=== PATIENT | female | born 1925 | race Caucasian/White ===

== ENCOUNTER 2017-09-14 19:20 | Inpatient (IN) | payer MEDICARE, OTHER ==
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
--- NOTE | 2017-09-14 20:41 | HP ---
Chief Complaint - Chief Complaint Date of Service: 09/14/17 Time of Service: 20:39 Chief Complaint: " Fall, LT Hip Pain". Source of HPI- Pt; reliable, ERP report. History of Present Illness: Mrs. Gonzalez is a 89-yr-old WF pt of Dr. Alonso Del Toro, [place], with a PMH of : Anemia, A-fib, Depression, DM II, GERD, HTN, PVD, Pulmonary Embolism & Warm reactive antibody. Pt is a shelter care resident at the [facility] in [place] who fell approximatley 2 pm while ambulating to the bathroom. She denies feeling dizzy with the fall and there was no loss of consciousness. She landed on the LT hip during the fall. However, she denies her head hitting the surface or any objects. She was taken to the [facility], but was transferred to [facility] due to the need for surgery by Orthopedics & Dr. Quintero was contacted by the [facility]. Laboratory studies at the [facility] showed: WBC--> 4.5, H & H---> 7.6/23.4, Platelets --> 455, PT/INR--> 16.8/1.5 & BMP was in the NR. The LT Hip X-ray showed Acute Intertrochanteric fracture.The CXR showed no acute findings. UA was negative of infection. The EKG --> A-fib with HR in the 80s. Pt will need to be admitted for LT hip Fx with tentative plan for surgery on 06/23. - Patient's Past Medical History Patient History - Medical: Depression, GERD Patient History - Cardiac/Respiratory: Atrial Fibrillation, Hypertension, Pulmonary Embolism Patient History - Cancer: No Hx of Cancer Patient History - Surgical Procedures: Cholecystectomy - 01/06/2014, Other - Revasculization of the iliac artery, Patch GRF- Mesenteric Celiac, Thromboembolectomy- RT common femoral, - Family History Father Family History - Medical: , No pertinent hx Mother Family History - Medical: , No pertinent hx - Social History Living Situations: retirement Psych History: No pertinent hx Smoking Status: Former smoker Have you smoked in the past 12 months: No Do you dip or chew tobacco: No Alcohol Use: none Drug Use: none - Immunizations Immunizations Up to Date: No - unknown Hx Pneumococcal Vaccination: Yes History of Influenza Vaccine: Yes Review Of Systems (GEN) - Review of Systems Generalized/Overall Review: Present: Weakness. Absent: Chills, Fever, Malaise EENTM: Present: Nose Congestion. Absent: Eye Pain, Blurred Vision Respiratory: Absent: Cough, Shortness of Breath, Orthopnea Cardiac: Absent: Chest Pain, Edema, Palpitations Abdominal: Absent: Nausea, Vomiting, Hematemesis, Constipation, Diarrhea Genitourinary: Absent: Burning, Itching, Urgency, Frequency Musculoskeletal: Absent: Joint Pain, Back Pain, Joint Swelling Neurological: Absent: Headache, Anxiety, Depressed, Emotional Problems Skin: Absent: Dryness, Lesions, Lumps Endocrine: Absent: Increased Hunger, Flushing, Increased Thirst Misc: All systems neg except as marked Immunizations: IMMUNIZATION HX Immunizations Up to Date No: unknown History of Influenza Vaccine Yes Hx Pneumococcal Vaccination Yes Allergies/Adverse Reactions: Allergies Allergy/AdvReac Type Severity Reaction Status Date / Time simvastatin AdvReac Unknown Verified 09/14/17 19:25 Home Medications: HOME MEDICATIONS Acetaminophen [Tylenol] 650 mg PO TID 09/14/17 [Last Taken Unknown] Citalopram Hydrobromide [Citalopram HBr] 40 mg PO DAILY 09/14/17 [Last Taken Unknown] Dabigatran Etexilate Mesylate [Pradaxa] 150 mg PO BID 09/14/17 [Last Taken Unknown] Famotidine 20 mg PO DAILY 09/14/17 [Last Taken Unknown] Metoprolol Tartrate [Lopressor] 12.5 mg PO BID 09/14/17 [Last Taken Unknown] buPROPion HCL [Wellbutrin XL] 150 mg PO DAILY 09/14/17 [Last Taken Unknown] Exam - Exam Vital Signs: Vital Signs - Last Taken Temp 36.3 C L 09/14/17 20:11 Pulse 83 09/14/17 20:11 Resp 18 09/14/17 20:11 BP 134/75 09/14/17 20:11 Pulse Ox 95 09/14/17 20:11 Constitutional: Present: Alert, Oriented x3, Cooperative, Elderly ENT Exam: Present: normal ENT inspection, dry mucous membranes Eye Exam: bilateral eye: normal inspection, PERRL Neck: Present: non-tender, full range of motion, supple Back Exam: Present: normal inspection, no CVA tenderness Breasts: Present: Exam deferred Respiratory: Present: lungs clear Cardiovascular/Chest: Present: normal peripheral pulses, regular rate, rhythm, no chest tenderness, no murmur Abdomen: Present: Normal bowel sounds, soft, nontender /Rectal: Present: Exam deferred Extremity: Present: no pedal edema, other - Limited ROM on the Left Lower Ext.. Absent: normal range of motion Skin Exam: Present: warm/dry, no cyanosis Lymphatic: Present: no adenopathy Neurologic: Present: alert, normal mood/affect, oriented x 3 Appearance: Present: appropriate appearance, appropriate insight Thoughts: Present: normal thought pattern, no apparent hallucination Assessment/Plan - Assessment/Plan (1) Intertrochanteric fracture of left hip Assessment: Pt is a 89-yr-old WF pt who sustained LT hip fracture following a fall on . Orthopedic consulted on pt by the [facility]. The pt laboratory studies was mostly unremarkable except for H/H of 7.6/23. Due to tentative surgery on 09/15, anticipated blood loss with surgery & high risk for hemorrhage;- Age & hgb < 12g /dL, it's reasonable to transfuse with PRBC to a goal of at least 9.0. However , antibodies were detected in her Type screen/crossmatch and may take over 4 hours for the compatible blood products to be obtained. Will transfuse 2 units and put 2 units on hold. The CXR did not have any acute findings. Troponin & EKG did not have any concerns for ACS/ND. UA was negative for infection. WBC is in NR. According to RCRI, She has a score of class II which carries a 0.9 % risk of major cardiac event pre/post operatively. She is clear to proceed with surgery as the benefits of surgery outweighs the risk of not performing any. Will hold anticoagulation for now. Has an INR of 1.5. Will provide supportive mgt with: immobilization, Varghese cath. Pain control, IVF hydration, Keep NPO, monitor labs in am. Problem: Acute Qualifiers: Encounter type: initial encounter Fracture type: closed Fracture alignment: nondisplaced Qualified Code(s): S72.145A - Nondisplaced intertrochanteric fracture of left femur, initial encounter for closed fracture (2) Atrial fibrillation Assessment: Will hold Pradaxa for now due to tentative surgery. Place on telemetry monitoring. Continue Metoprolol. Problem: Chronic Qualifiers: Atrial fibrillation type: chronic Qualified Code(s): I48.2 - Chronic atrial fibrillation (3) HTN (hypertension) Assessment: Stable- Keep pain under control. Problem: Chronic (4) GERD (gastroesophageal reflux disease) Assessment: Stable - Pepsid. Problem: Chronic (5) Depression Assessment: Stable- On Celexa and Wellbutrin. Problem: Chronic (6) Pulmonary embolism Problem: Chronic
[2017-09-14] MEDS ORDERED: HYDROmorphone HCL 2 MG/ML VIAL ONE ×2 (22:04→23:14)
[2017-09-14] MEDS: METOPROLOL TARTRATE 25 MG TABLET PO SCH (22:07)
[2017-09-14] MEDS: HYDROmorphone HCL 1 MG/ML DISP.SYRIN IV PRN ×2 (22:10→23:16)
[2017-09-14] MEDS: NORMAL SALINE 1,000 ML IV PRN (22:13)
[2017-09-15 03:06] LABS: Anion Gap 8.4 mmol/L (6.8-13.8); BUN/Creatinine Ratio 22.4 (9.0-21.6); Estimated Creat Clear 37.8; Potassium 4.4 mmol/L (3.4-4.6)
[2017-09-15 03:07] LABS: INR 1.1 INR (0.90-1.10)
[2017-09-15 03:14] LABS: Mean Cell Volume 86.1 fl (78-100); Mean Corpuscular Hemoglobin 26.4 pg (27-31); Mean Corpuscular Hgb Conc 30.6 g/dl (32-36); Mean Platelet Volume 8.8 fl (6.0-9.5); Platelet Count 370 K/mm3 (150-450); Red Blood Count 2.73 M/mm3 (4.2-5.4); Red Cell Distribution Width 16.8 % (11.5-14.0); White Blood Count 5.6 K/mm3 (4.0-10.5)
[2017-09-15 03:16] LABS: Hemoglobin 7.2 gm/dL (12.5-16.0)
[2017-09-15 03:17] LABS: Hematocrit 23.5 % (37.0-47.0)
[2017-09-15 03:18] LABS: Total Cells Counted 100
[2017-09-15 03:45] LABS: Band 1 % (0-2.0); Lymphocyte 20 % (20-51); Monocyte 8 % (0-9); Neutrophil 71 % (42-75)
[2017-09-15 03:46] LABS: Hypochromia 3+; Ovalocytes 1+; Platelet Estimate Increased (NORMAL); Rouleaux 1+
[2017-09-15] MEDS ORDERED: HYDROmorphone HCL 2 MG/ML VIAL IV PRN (06:21)
[2017-09-15] MEDS: MORPHINE SULFATE 2 MG/ML DISP.SYRIN IV PRN ×4 (08:45→20:38)
[2017-09-15] MEDS: CITALOPRAM HYDROBROMIDE 20 MG TABLET PO SCH (08:52)
[2017-09-15] MEDS: buPROPion HCL 150 MG TAB.SR.24H PO SCH (08:52)
[2017-09-15] MEDS: METOPROLOL TARTRATE 25 MG TABLET PO SCH ×2 (08:52→20:33)
[2017-09-15] MEDS: FAMOTIDINE 20 MG TABLET PO SCH (08:52)
[2017-09-15] MEDS: ACETAMINOPHEN 325 MG TABLET PO SCH ×3 (08:53→17:17)
--- NOTE | 2017-09-15 09:58 | PN ---
Subjective - Date and Time Seen Date: 09/15/17 Time: 09:00 Subjective Narrative: Lisa reports having left hip pain with movement. Otherwise feels well. No other concerns. She denies any recent problems prior to her fall. Specifically denies chest pain, shortness of breath, bowel, or bladder problems. Objective - Vitals Vitals: Last Vital Signs Temp 37 C 09/15/17 09:56 Pulse 90 09/15/17 09:56 Resp 16 09/15/17 09:56 BP 114/69 09/15/17 09:56 Pulse Ox 93 09/15/17 09:56 - Exam Constitutional: Present: Alert, Oriented x3, Cooperative ENT Exam: Present: hearing grossly normal Cardiovascular/Chest: Present: irregularly irregular Abdomen: Present: Normal bowel sounds, soft, nontender, nondistended Skin Exam: Present: warm/dry, no cyanosis, pallor Assessment/Plan - Problems/Diagnosis (1) Intertrochanteric fracture of left hip Problem: Acute Qualifiers: Encounter type: initial encounter Fracture type: closed Fracture alignment: displaced Qualified Code(s): S72.142A - Displaced intertrochanteric fracture of left femur, initial encounter for closed fracture Narrative: Orthopedics consult for repair of left hip fracture. Patient is otherwise doing well and is medically cleared for surgery. She does have acute blood loss anemia suspected to be secondary to hip fracture with hemoglobin significantly low. As she will be undergoing surgery and is expected to lose blood during surgery she meets criteria for blood transfusion. Will transfuse 2 units. Will recheck Hemoglobin following completion of transfusions. (2) Acute blood loss anemia Problem: Acute (3) Atrial fibrillation Problem: Chronic Qualifiers: Atrial fibrillation type: chronic Qualified Code(s): I48.2 - Chronic atrial fibrillation
--- NOTE | 2017-09-15 10:23 | CONS ---
- Reason for consultation (1) Intertrochanteric fracture of left hip Date of Service: 09/15/17 HPI - General Date of Service: 09/15/17 Narrative: Mrs. Gonzalez is a 89-year-old female who lives at a nursing facility who was walking when she fell resulting in a left hip injury. She was seen in an outside emergency department and found to have a left intertrochanteric femur fracture. They did not have orthopedic coverage there so she was transferred to our emergency department for evaluation and subsequently admitted for orthopedic care. She states she normally walks with a walker. She denies any prior hip pain or injuries. She does report when she was a child she had a infected hip but has had no problems with it since. She walks independently with a walker but is not a community ambulator. Source: patient Exam Limitations: no limitations - History of Present Illness Timing/Duration: 24 hours Severity: moderate Modifying Factors - (Worsens): Reports: movement Modifying Factors - (Improves): Reports: immobilization, medication Associated Symptoms: denies symptoms Allergies/Adverse Reactions: Allergies simvastatin Adverse Reaction (Unknown, Verified 09/14/17 19:25) Home Medications: Home Medications Medication Instructions Recorded Last Taken Acetaminophen [Tylenol] 650 mg PO TID 09/14/17 Unknown Citalopram Hydrobromide 40 mg PO DAILY 09/14/17 Unknown [Citalopram HBr] Dabigatran Etexilate Mesylate 150 mg PO BID 09/14/17 Unknown [Pradaxa] Famotidine 20 mg PO DAILY 09/14/17 Unknown Metoprolol Tartrate [Lopressor] 12.5 mg PO BID 09/14/17 Unknown buPROPion HCL [Wellbutrin XL] 150 mg PO DAILY 09/14/17 Unknown - Patient's Past Medical History Patient History - Medical: Depression, GERD Patient History - Cardiac/Respiratory: Atrial Fibrillation, Hypertension, Pulmonary Embolism Patient History - Cancer: No Hx of Cancer Patient History - Surgical Procedures: Cholecystectomy - 01/06/2014, Other - Revasculization of the iliac artery, Patch GRF- Mesenteric Celiac, Thromboembolectomy- RT common femoral, - Family History Father Family History - Medical: , No pertinent hx Mother Family History - Medical: , No pertinent hx - Social History Living Situations: long term Psych History: No pertinent hx Smoking Status: Former smoker Have you smoked in the past 12 months: No Do you dip or chew tobacco: No Alcohol Use: none Drug Use: none - Immunizations Immunizations Up to Date: No - unknown Hx Pneumococcal Vaccination: Yes History of Influenza Vaccine: Yes Procedures CATARAC PHACOEMULS/ASPIR (03/13/03) INSERT LENS AT CATAR EXT (03/13/03) Medications - Medications Current Medications: Current Medications Acetaminophen (Tylenol) 650 mg PO TID [facility] Stop: 10/15/17 09:01 Last Admin: 09/15/17 08:53 Dose: Not Given Bupropion HCl (Wellbutrin Xl) 150 mg PO DAILY [facility] Stop: 10/15/17 09:01 Last Admin: 09/15/17 08:52 Dose: Not Given Citalopram Hydrobromide (Celexa) 40 mg PO DAILY [facility] Stop: 10/15/17 09:01 Last Admin: 09/15/17 08:52 Dose: Not Given Famotidine (Pepcid) 20 mg PO DAILY [facility] Stop: 10/15/17 09:01 Last Admin: 09/15/17 08:52 Dose: Not Given Sodium Chloride (Sodium Chloride 0.9%) 1,000 mls @ 125 mls/hr IV .Q8H PRN PRN Reason: HYDRATION Stop: 10/14/17 21:50 Last Admin: 09/14/17 22:13 Dose: 125 mls/hr Metoprolol Tartrate (Lopressor) 12.5 mg PO BID [facility] Stop: 10/14/17 21:01 Last Admin: 09/15/17 08:52 Dose: 12.5 mg Morphine Sulfate (Morphine Sulfate) 2 mg IV Q2H PRN PRN Reason: Severe Pain (pain scale 7-10) Stop: 10/15/17 06:42 Last Admin: 09/15/17 08:45 Dose: 2 mg Review of Systems - Review of Systems Narrative: Negative except for above Physical Examination - Exam Narrative: Left lower extremity: Palpable dorsalis pedis pulse, sensation is intact light touch throughout the left leg. She is able to flex and extend her toes and ankle with no pain. She is pain with any leg motion. Her left hip has no ecchymosis, lacerations, or abrasions. There is minimal deformity to her leg. Vital Signs: Vital Signs - Last Taken Temp 37 C 09/15/17 09:56 Pulse 90 09/15/17 09:56 Resp 16 09/15/17 09:56 BP 114/69 09/15/17 09:56 Pulse Ox 93 09/15/17 09:56 O2 Oxygen Delivery Method Nasal Cannula Constitutional: Present: Alert, Oriented x3 - Results and Findings: Narrative: Left hip films: Minimally displaced simple intertrochanteric femur fracture without signs of prior trauma or deformity. - Assessments/Findings (1) Intertrochanteric fracture of left hip Diagnosis(s): The plan is for closed reduction cephalo-medullary fixation left hip. She will need preoperative Ancef and will be placed back onto her part accepted for DVT prophylaxis. The plan is to proceed with surgery today Problem: Acute Qualifiers: Encounter type: initial encounter Fracture type: closed Fracture alignment: displaced Qualified Code(s): S72.142A - Displaced intertrochanteric fracture of left femur, initial encounter for closed fracture
[2017-09-15] MEDS ORDERED: ceFAZolin SODIUM 1 GM VIAL IV PRN (10:24)
[2017-09-15] MEDS ORDERED: NORMAL SALINE 1,000 ML IV ONE (13:15)
[2017-09-15] MEDS ORDERED: ceFAZolin SODIUM 1 GM VIAL IV ONE (13:15)
[2017-09-15] MEDS ORDERED: FUROSEMIDE 10 MG/ML VIAL IV ONE (13:44)
--- NOTE | 2017-09-15 14:17 | POSTOP NO ---
Date of Surgery: 09/15/17 Patient Tolerated the Procedure: Well Post Operative Diagnosis/Procedures: Technical Sales Engineer: Aaron Long PA-C Post-operative Diagnosis: Left closed intertrochanteric femur fracture Finding: Above Procedure: Closed reduction cephalo-medullary fixation left intertrochanteric femur fracture with intraoperative interpretation of x-rays Estimated Blood Loss: 50 mL Specimens: None
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
[2017-09-15] MEDS ORDERED: MAGNESIUM HYDROXIDE 30 ML UDC PO PRN (14:19)
[2017-09-15] MEDS ORDERED: PROMETHAZINE HCL 5 MG in DEXTROSE 5 % IN WATER 50 ML IV PRN ×2 (14:19)
[2017-09-15 15:32] LABS: Hematocrit 32.9 % (37.0-47.0); Hemoglobin 10.4 gm/dL (12.5-16.0)
[2017-09-15] MEDS: NORMAL SALINE 1,000 ML IV PRN (15:57)
[2017-09-15] MEDS: ceFAZolin SODIUM 1 GM in DEXTROSE 5 % IN WATER 50 ML IV SCH ×4 (17:13→23:46)
[2017-09-15] MEDS: SENNOSIDES/DOCUSATE SODIUM 1 TAB TABLET PO SCH (20:37)
[2017-09-16] MEDS: NORMAL SALINE 1,000 ML IV PRN ×2 (00:52→09:47)
[2017-09-16] MEDS: ceFAZolin SODIUM 1 GM in DEXTROSE 5 % IN WATER 50 ML IV SCH ×2 (04:25)
[2017-09-16] MEDS: MORPHINE SULFATE 2 MG/ML DISP.SYRIN IV PRN (04:35)
[2017-09-16 06:15] LABS: Hematocrit 30.6 % (37.0-47.0); Hemoglobin 9.7 gm/dL (12.5-16.0); Mean Cell Volume 86.2 fl (78-100); Mean Corpuscular Hemoglobin 27.3 pg (27-31); Mean Corpuscular Hgb Conc 31.7 g/dl (32-36); Mean Platelet Volume 9.2 fl (6.0-9.5); Platelet Count 321 K/mm3 (150-450); Red Blood Count 3.55 M/mm3 (4.2-5.4); Red Cell Distribution Width 16.5 % (11.5-14.0); White Blood Count 6.6 K/mm3 (4.0-10.5)
[2017-09-16 06:41] LABS: Anion Gap 11.1 mmol/L (6.8-13.8); BUN/Creatinine Ratio 23.2 (9.0-21.6); Carbon Dioxide 27.6 mmol/L (24-32.6); Estimated Creat Clear 37.5; Potassium 3.7 mmol/L (3.4-4.6)
--- NOTE | 2017-09-16 06:54 | PN ---
Subjective - Date and Time Seen Date: 09/16/17 Time: 06:53 Subjective Narrative: Pt examined this am. States pain in not well controlled. Has not ambulated yet. No other issues according to nursing. Objective - Vitals Vitals: Last Vital Signs Temp 36.4 C L 09/15/17 21:00 Pulse 79 09/16/17 05:00 Resp 18 09/15/17 21:00 BP 124/85 09/16/17 05:00 Pulse Ox 97 09/16/17 05:00 - Abnormal Lab Findings Abnormal Lab Findings: Abnormal Lab Results 09/15/17 09/16/17 09/16/17 Range/Units 15:30 06:12 06:12 RBC 3.55 L (4.2-5.4) M/mm3 Hgb 10.4 L 9.7 L (12.5-16.0) gm/dL Hct 32.9 L 30.6 L (37.0-47.0) % MCHC 31.7 L (32-36) g/dl RDW 16.5 H (11.5-14.0) % Est GFR (Non-Af Amer) 56 L (60-130) mL/min BUN/Creatinine Ratio 23.2 H (9.0-21.6) Random Glucose 154 H (70-110) mg/dL - Exam Constitutional: Present: Alert, Oriented x3, Cooperative, No distress ENT Exam: Present: normal ENT inspection Neck: Present: non-tender, full range of motion Breasts: Present: Exam deferred Respiratory: Present: lungs clear, no accessory muscle use Cardiovascular/Chest: Present: normal peripheral pulses, regular rate, rhythm, no chest tenderness Abdomen: Present: Normal bowel sounds, soft, nontender /Rectal: Present: Exam deferred Extremity: Present: normal range of motion, non-tender, normal inspection Skin Exam: Present: warm/dry, no cyanosis Lymphatic: Present: no adenopathy Neurologic: Present: no motor/sensory deficits, alert, oriented x 3 Appearance: Present: appropriate appearance, appropriate insight Eye contact: Present: cooperative, good eye contact, normal speech Thoughts: Present: normal thought pattern, no apparent hallucination Cauti Physician Documentation - Urinary Catheter Management Urethral (Varghese) Date of Removal: 09/16/17 Time of Removal: 07:00 Assessment/Plan Plan Narrative: Pt is a 89-yr-old WF pt with; 1) Intertrochanteric fracture of LT hip- POD # 1. Ortho is following the pt and will continued with their recommendations; PT/OT, anticoagulation, pain control with goal of oral meds, bowel regimen, anticoagulation. 2) Anemia due to blood loss. Hgb 7.2. Received transfusions prior to surgery. Hgb remains stable. Monitor CBC. 3) Discharge Planning Issues- Will need skilled at discharge. She is a resident of [facility] 4) Chronic stable conditions- Depression, DM II GERD HTN PVD Pulmonary Embolism Warm reactive antibody. - Problems/Diagnosis (1) Intertrochanteric fracture of left hip Problem: Acute Qualifiers: Encounter type: subsequent encounter Fracture type: closed Fracture alignment: displaced Fracture healing: with routine healing Qualified Code(s ): S72.142D - Displaced intertrochanteric fracture of left femur, subsequent encounter for closed fracture with routine healing (2) Atrial fibrillation Problem: Chronic Qualifiers: Atrial fibrillation type: chronic Qualified Code(s): I48.2 - Chronic atrial fibrillation (3) HTN (hypertension) Problem: Chronic (4) GERD (gastroesophageal reflux disease) Problem: Chronic (5) Depression Problem: Chronic (6) Pulmonary embolism Problem: Chronic
[2017-09-16] MEDS: ONDANSETRON HCL/PF 2 MG/ML VIAL IV PRN (07:00)
[2017-09-16] MEDS: HYDROcodone/ACETAMINOPHEN 1 EACH TABLET PO PRN ×4 (07:00→16:57)
--- NOTE | 2017-09-16 08:07 | PN ---
Subjective - Date and Time Seen Date: 09/16/17 Time: 08:04 Subjective Narrative: Subjective: Reports pain in the left hip. Was able to get to the chair with therapy. Pain is not well-controlled. Tolerating by mouth intake. Physical exam: Alert and oriented to person, place and time Left lower Extremity: Palpable dorsalis pedis pulse. Sensation grossly intact to light touch. Dressings clean and dry. Able to flex and extend ankle and toes. No excessive drainage. Calf and thigh are soft and nontender. Assessment: Postop day 1 status post left hip cephalo-medullary fixation. Plan: Continue with physical and occupational therapy weightbearing as tolerated. She is chronically on Pradaxa and we will continue this for her DVT prophylaxis. 24 hours postoperative prophylactic antibiotics. Pain control with goal to rely on oral medications. Continue bowel regimen. She is to keep her wound clean and dry cover with dry gauze and tape. Objective - Vitals Vitals: Last Vital Signs Temp 36.4 C L 09/15/17 21:00 Pulse 79 09/16/17 05:00 Resp 18 09/15/17 21:00 BP 124/85 09/16/17 05:00 Pulse Ox 97 09/16/17 05:00 - Abnormal Lab Findings Abnormal Lab Findings: Abnormal Lab Results 09/15/17 09/16/17 09/16/17 Range/Units 15:30 06:12 06:12 RBC 3.55 L (4.2-5.4) M/mm3 Hgb 10.4 L 9.7 L (12.5-16.0) gm/dL Hct 32.9 L 30.6 L (37.0-47.0) % MCHC 31.7 L (32-36) g/dl RDW 16.5 H (11.5-14.0) % Est GFR (Non-Af Amer) 56 L (60-130) mL/min BUN/Creatinine Ratio 23.2 H (9.0-21.6) Random Glucose 154 H (70-110) mg/dL Cauti Physician Documentation - Urinary Catheter Management Urethral (Varghese) Date of Removal: 09/16/17 Time of Removal: 07:00 Assessment/Plan - Problems/Diagnosis (1) Intertrochanteric fracture of left hip Problem: Acute Qualifiers: Encounter type: subsequent encounter Fracture type: closed Fracture alignment: displaced Fracture healing: with routine healing Qualified Code(s ): S72.142D - Displaced intertrochanteric fracture of left femur, subsequent encounter for closed fracture with routine healing
[2017-09-16] MEDS: buPROPion HCL 150 MG TAB.SR.24H PO SCH (09:05)
[2017-09-16] MEDS: ACETAMINOPHEN 325 MG TABLET PO SCH ×3 (09:05→16:03)
[2017-09-16] MEDS: FAMOTIDINE 20 MG TABLET PO SCH (09:05)
[2017-09-16] MEDS: METOPROLOL TARTRATE 25 MG TABLET PO SCH ×2 (09:05→20:17)
[2017-09-16] MEDS: CITALOPRAM HYDROBROMIDE 20 MG TABLET PO SCH (09:06)
[2017-09-16] MEDS: DABIGATRAN ETEXILATE MESYLATE 150 MG CAPSULE PO SCH ×2 (09:06→20:18)
[2017-09-16] MEDS: SENNOSIDES/DOCUSATE SODIUM 1 TAB TABLET PO SCH (20:18)
[2017-09-17] MEDS: HYDROcodone/ACETAMINOPHEN 1 EACH TABLET PO PRN ×2 (03:40→06:56)
[2017-09-17 06:05] LABS: Hematocrit 28.7 % (37.0-47.0); Hemoglobin 9.4 gm/dL (12.5-16.0); Mean Cell Volume 84.2 fl (78-100); Mean Corpuscular Hemoglobin 27.6 pg (27-31); Mean Corpuscular Hgb Conc 32.8 g/dl (32-36); Mean Platelet Volume 8.8 fl (6.0-9.5); Neutrophil # 6.7 K/mm3 (1.3-6.0); Neutrophil % 79.3 % (42-75.0); Platelet Count 310 K/mm3 (150-450); Red Blood Count 3.41 M/mm3 (4.2-5.4); Red Cell Distribution Width 16.6 % (11.5-14.0); White Blood Count 8.4 K/mm3 (4.0-10.5)
--- NOTE | 2017-09-17 06:13 | PN ---
Subjective - Date and Time Seen Date: 09/17/17 Time: 06:10 Subjective Narrative: Pt seen this am. States she did not participate with PT due to dizziness. No other episodes. Nursing report she requires maximum assist of 2 for transfers. Pain is well controlled. No acute events. will check orthostatics BP x 1. Objective - Vitals Vitals: Last Vital Signs Temp 37.0 C 09/17/17 03:45 Pulse 88 09/17/17 03:45 Resp 18 09/17/17 03:45 BP 132/82 09/17/17 03:45 Pulse Ox 92 09/17/17 03:45 - Abnormal Lab Findings Abnormal Lab Findings: Abnormal Lab Results 09/16/17 09/16/17 09/17/17 Range/Units 06:12 06:12 06:02 RBC 3.55 L 3.41 L (4.2-5.4) M/mm3 Hgb 9.7 L 9.4 L (12.5-16.0) gm/dL Hct 30.6 L 28.7 L (37.0-47.0) % MCHC 31.7 L (32-36) g/dl RDW 16.5 H 16.6 H (11.5-14.0) % Neutrophils % 79.3 H (42-75.0) % Lymphocytes % 11.6 L (20-51) % Neutrophils # 6.7 H (1.3-6.0) K/mm3 Lymphocytes # 1.0 L (1.5-3.5) k/mm3 Est GFR (Non-Af Amer) 56 L (60-130) mL/min BUN/Creatinine Ratio 23.2 H (9.0-21.6) Random Glucose 154 H (70-110) mg/dL - Exam Constitutional: Present: Alert, Oriented x3, Cooperative, No distress ENT Exam: Present: normal ENT inspection, hearing grossly normal. Absent: nasal congestion, nasal drainage Neck: Present: non-tender, full range of motion, supple Breasts: Present: Exam deferred Respiratory: Present: lungs clear, no accessory muscle use Cardiovascular/Chest: Present: normal peripheral pulses, regular rate, rhythm, no chest tenderness Abdomen: Present: Normal bowel sounds, soft, nontender /Rectal: Present: Exam deferred Extremity: Present: normal range of motion, non-tender Skin Exam: Present: warm/dry, no cyanosis, other - Surgical site Neurologic: Present: no motor/sensory deficits, alert, normal mood/affect, dizzy /light-headedness Appearance: Present: appropriate appearance, appropriate insight Eye contact: Present: cooperative, good eye contact, normal speech Thoughts: Present: no apparent hallucination Cauti Physician Documentation - Urinary Catheter Management Urethral (Varghese) Date of Removal: 09/16/17 Time of Removal: 07:00 Assessment/Plan Plan Narrative: Pt is a 89-yr-old WF pt with; 1) Intertrochanteric fracture of LT hip- POD # 2. Ortho is following the pt and will continued with their recommendations; PT/OT, anticoagulation, pain control with goal of oral meds, bowel regimen, anticoagulation. 2) Anemia due to blood loss. Hgb 7.2. Received transfusions prior to surgery. Hgb remains stable in the 9's. Monitor CBC. 3) Discharge Planning Issues- Will need skilled at discharge. She is a resident of [facility] 4) Chronic stable conditions- Depression, DM II GERD HTN PVD Pulmonary Embolism Warm reactive antibody. - Problems/Diagnosis (1) Intertrochanteric fracture of left hip Problem: Acute Qualifiers: Encounter type: subsequent encounter Fracture type: closed Fracture alignment: displaced Fracture healing: with routine healing Qualified Code(s ): S72.142D - Displaced intertrochanteric fracture of left femur, subsequent encounter for closed fracture with routine healing (2) Atrial fibrillation Problem: Chronic Qualifiers: Atrial fibrillation type: chronic Qualified Code(s): I48.2 - Chronic atrial fibrillation (3) HTN (hypertension) Problem: Chronic (4) GERD (gastroesophageal reflux disease) Problem: Chronic (5) Depression Problem: Chronic (6) Pulmonary embolism Problem: Chronic
[2017-09-17] MEDS: ONDANSETRON HCL/PF 2 MG/ML VIAL IV PRN (06:55)
[2017-09-17] MEDS ORDERED: MORPHINE SULFATE 10 MG/0.5 ML SYRINGE PO PRN (09:19)
--- NOTE | 2017-09-17 09:24 | PN ---
Subjective - Date and Time Seen Date: 09/17/17 Time: 09:21 Subjective Narrative: Patient reports nausea associated with taking Huron. She reports no vomiting. She feels pain is controlled. Reports pain improved at rest and worse with getting up. She reports good appetite. No other complaints. Objective Objective Narrative: Patient up in chair. Alert and responds to questions appropriately. Bandages intact. Dried blood on bandages around proximal incision. Calf supple. Patient able to PF/DF ankle. Reports sensation intact in LLE. - Vitals Vitals: Last Vital Signs Temp 36.8 C 09/17/17 07:38 Pulse 95 09/17/17 07:38 Resp 18 09/17/17 07:38 BP 139/94 09/17/17 07:38 Pulse Ox 94 09/17/17 07:38 - Abnormal Lab Findings Abnormal Lab Findings: Abnormal Lab Results 09/17/17 Range/Units 06:02 RBC 3.41 L (4.2-5.4) M/mm3 Hgb 9.4 L (12.5-16.0) gm/dL Hct 28.7 L (37.0-47.0) % RDW 16.6 H (11.5-14.0) % Neutrophils % 79.3 H (42-75.0) % Lymphocytes % 11.6 L (20-51) % Neutrophils # 6.7 H (1.3-6.0) K/mm3 Lymphocytes # 1.0 L (1.5-3.5) k/mm3 Cauti Physician Documentation - Urinary Catheter Management Urethral (Varghese) Date of Removal: 09/16/17 Time of Removal: 07:00 Assessment/Plan - Problems/Diagnosis (1) Nausea Problem: Acute Narrative: Will discontinue Huron and switch to [facility] IR. (2) Acute blood loss anemia Problem: Acute Narrative: Improved. VSS. (3) Intertrochanteric fracture of left hip Problem: Acute Qualifiers: Encounter type: subsequent encounter Fracture type: closed Fracture alignment: displaced Fracture healing: with routine healing Qualified Code(s ): S72.142D - Displaced intertrochanteric fracture of left femur, subsequent encounter for closed fracture with routine healing Narrative: PT. Anticoagulation. Pain control. (4) Atrial fibrillation Problem: Chronic Qualifiers: Atrial fibrillation type: chronic Qualified Code(s): I48.2 - Chronic atrial fibrillation (5) Depression Problem: Chronic (6) GERD (gastroesophageal reflux disease) Problem: Chronic (7) HTN (hypertension) Problem: Chronic
[2017-09-17] MEDS: METOPROLOL TARTRATE 25 MG TABLET PO SCH ×2 (10:30→21:00)
[2017-09-17] MEDS: ACETAMINOPHEN 325 MG TABLET PO SCH ×3 (10:30→17:27)
[2017-09-17] MEDS: buPROPion HCL 150 MG TAB.SR.24H PO SCH (10:31)
[2017-09-17] MEDS: FAMOTIDINE 20 MG TABLET PO SCH (10:31)
[2017-09-17] MEDS: DABIGATRAN ETEXILATE MESYLATE 150 MG CAPSULE PO SCH ×2 (10:31→21:00)
[2017-09-17] MEDS: CITALOPRAM HYDROBROMIDE 20 MG TABLET PO SCH (10:31)
[2017-09-17] MEDS: ACETAMINOPHEN 500 MG TABLET PO PRN (20:57)
[2017-09-17] MEDS: SENNOSIDES/DOCUSATE SODIUM 1 TAB TABLET PO SCH ×2 (21:00→21:07)
--- NOTE | 2017-09-18 07:21 | PN ---
Subjective - Date and Time Seen Date: 09/18/17 Time: 07:21 Subjective Narrative: Pt examined this am. Says dizziness is improving. Pain is well controlled with PO meds. No other acute events overnight. Objective - Vitals Vitals: Last Vital Signs Temp 36.4 C L 09/18/17 06:54 Pulse 91 09/18/17 06:54 Resp 18 09/18/17 06:54 BP 130/74 09/18/17 06:54 Pulse Ox 95 09/18/17 06:54 - Exam Constitutional: Present: Alert, Oriented x3, Cooperative ENT Exam: Present: normal ENT inspection. Absent: nasal drainage, pharyngeal erythema Neck: Present: non-tender, full range of motion, supple Breasts: Present: Exam deferred Respiratory: Present: lungs clear Cardiovascular/Chest: Present: normal peripheral pulses, regular rate, rhythm Abdomen: Present: Normal bowel sounds, soft, nontender /Rectal: Present: Exam deferred, External genitalia normal Extremity: Present: no pedal edema Skin Exam: Present: warm/dry, no cyanosis, other - LT hip surgical site Lymphatic: Present: no adenopathy Neurologic: Present: alert, normal mood/affect, oriented x 3 Appearance: Present: appropriate appearance, appropriate insight Eye contact: Present: cooperative, good eye contact, normal speech Thoughts: Present: normal thought pattern, no apparent hallucination Cauti Physician Documentation - Urinary Catheter Management Urethral (Varghese) Date of Removal: 09/16/17 Time of Removal: 07:00 Assessment/Plan Plan Narrative: Pt is a 89-yr-old WF pt with; 1) Intertrochanteric fracture of LT hip- POD # 3. Ortho is following the pt and will continued with their recommendations; PT/OT, anticoagulation, pain control with goal of oral meds, bowel regimen, anticoagulation. 2) Anemia due to blood loss. Hgb 7.2. Received transfusions prior to surgery. Hgb remains stable in the 9's. Monitor CBC. 3) Discharge Planning Issues- Will need skilled at discharge. She is a resident of [facility] 4) Chronic stable conditions- Depression, DM II GERD HTN PVD Pulmonary Embolism Warm reactive antibody - Problems/Diagnosis (1) Intertrochanteric fracture of left hip Problem: Acute Qualifiers: Encounter type: subsequent encounter Fracture type: closed Fracture alignment: displaced Fracture healing: with routine healing Qualified Code(s ): S72.142D - Displaced intertrochanteric fracture of left femur, subsequent encounter for closed fracture with routine healing (2) Atrial fibrillation Problem: Chronic Qualifiers: Atrial fibrillation type: chronic Qualified Code(s): I48.2 - Chronic atrial fibrillation (3) HTN (hypertension) Problem: Chronic (4) GERD (gastroesophageal reflux disease) Problem: Chronic (5) Depression Problem: Chronic (6) Pulmonary embolism Problem: Chronic
[2017-09-18] MEDS: ONDANSETRON HCL/PF 2 MG/ML VIAL IV PRN (07:22)
[2017-09-18] MEDS: METOPROLOL TARTRATE 25 MG TABLET PO SCH ×2 (10:17→20:53)
[2017-09-18] MEDS: ACETAMINOPHEN 325 MG TABLET PO SCH ×3 (10:17→16:31)
[2017-09-18] MEDS: buPROPion HCL 150 MG TAB.SR.24H PO SCH (10:17)
[2017-09-18] MEDS: FAMOTIDINE 20 MG TABLET PO SCH (10:18)
[2017-09-18] MEDS: DABIGATRAN ETEXILATE MESYLATE 150 MG CAPSULE PO SCH ×2 (10:18→20:53)
[2017-09-18] MEDS: CITALOPRAM HYDROBROMIDE 20 MG TABLET PO SCH (10:18)
[2017-09-18] MEDS: MAG HYDROX/ALUMINUM HYD/SIMETH 30 ML UDC PO PRN (16:26)
[2017-09-18] MEDS: ACETAMINOPHEN 500 MG TABLET PO PRN (20:52)
[2017-09-18] MEDS: SENNOSIDES/DOCUSATE SODIUM 1 TAB TABLET PO SCH (20:54)
--- NOTE | 2017-09-19 06:39 | PN ---
Subjective - Date and Time Seen Date: 09/19/17 Time: 06:37 Subjective Narrative: Pt seen this am. Has no complaints. Has been able to tolerate activity better. No acute events overnight. Objective - Vitals Vitals: Last Vital Signs Temp 36.4 C L 09/19/17 02:38 Pulse 89 09/19/17 02:38 Resp 16 09/19/17 02:38 BP 125/81 09/19/17 02:38 Pulse Ox 97 09/19/17 02:38 - Exam Constitutional: Present: Alert, Oriented x3, Cooperative, No distress ENT Exam: Present: normal ENT inspection Neck: Present: non-tender, full range of motion Breasts: Present: Exam deferred Respiratory: Present: lungs clear Cardiovascular/Chest: Present: normal peripheral pulses, regular rate, rhythm, no murmur Abdomen: Present: Normal bowel sounds, soft, nontender /Rectal: Present: Exam deferred Extremity: Present: normal range of motion, non-tender, other - LT hip surgical site Skin Exam: Present: warm/dry, no cyanosis Neurologic: Present: no motor/sensory deficits, alert. Absent: dizzy/light- headedness Appearance: Present: appropriate appearance, appropriate insight Eye contact: Present: cooperative, good eye contact, normal speech Thoughts: Present: normal thought pattern, no apparent hallucination Cauti Physician Documentation - Urinary Catheter Management Urethral (Varghese) Date of Removal: 09/16/17 Time of Removal: 07:00 Assessment/Plan Plan Narrative: Pt is a 89-yr-old WF pt with; 1) Intertrochanteric fracture of LT hip- POD # 4. Ortho is following the pt and will continued with their recommendations; PT/OT, anticoagulation, pain control with goal of oral meds, bowel regimen, anticoagulation. 2) Anemia due to blood loss. Hgb 7.2. Received transfusions prior to surgery. Hgb remains stable in the 9's. Monitor CBC. 3) Discharge Planning Issues- Will need skilled at discharge. She is a resident of [facility] 4) Chronic stable conditions- Depression, DM II GERD HTN PVD Pulmonary Embolism Warm reactive antibody - Problems/Diagnosis (1) Intertrochanteric fracture of left hip Problem: Acute Qualifiers: Encounter type: subsequent encounter Fracture type: closed Fracture alignment: displaced Fracture healing: with routine healing Qualified Code(s ): S72.142D - Displaced intertrochanteric fracture of left femur, subsequent encounter for closed fracture with routine healing (2) Atrial fibrillation Problem: Chronic Qualifiers: Atrial fibrillation type: chronic Qualified Code(s): I48.2 - Chronic atrial fibrillation (3) HTN (hypertension) Problem: Chronic (4) GERD (gastroesophageal reflux disease) Problem: Chronic (5) Depression Problem: Chronic (6) Pulmonary embolism Problem: Chronic
[2017-09-19] MEDS: MAG HYDROX/ALUMINUM HYD/SIMETH 30 ML UDC PO PRN (07:03)
[2017-09-19] MEDS: METOPROLOL TARTRATE 25 MG TABLET PO SCH ×2 (09:43→20:12)
[2017-09-19] MEDS: ACETAMINOPHEN 325 MG TABLET PO SCH ×3 (09:43→17:56)
[2017-09-19] MEDS: CITALOPRAM HYDROBROMIDE 20 MG TABLET PO SCH (09:43)
[2017-09-19] MEDS: FAMOTIDINE 20 MG TABLET PO SCH (09:44)
[2017-09-19] MEDS: buPROPion HCL 150 MG TAB.SR.24H PO SCH (09:44)
[2017-09-19] MEDS: DABIGATRAN ETEXILATE MESYLATE 150 MG CAPSULE PO SCH ×2 (09:47→20:11)
[2017-09-19 10:14] LABS: Hematocrit 26.6 % (37.0-47.0); Hemoglobin 8.5 gm/dL (12.5-16.0); Mean Corpuscular Hemoglobin 27.2 pg (27-31); Mean Platelet Volume 9.3 fl (6.0-9.5); Neutrophil # 6.2 K/mm3 (1.3-6.0); Neutrophil % 78.3 % (42-75.0); Platelet Count 415 K/mm3 (150-450); Red Blood Count 3.13 M/mm3 (4.2-5.4); Red Cell Distribution Width 17.3 % (11.5-14.0); White Blood Count 7.9 K/mm3 (4.0-10.5)
[2017-09-19 10:28] LABS: Albumin * 1.9 gm/dl (3.4-5.0); Anion Gap 8.1 mmol/L (6.8-13.8); BUN/Creatinine Ratio 27.6 (9.0-21.6); Bilirubin, Total 0.6 mg/dL (0.0-1.1); Ca. Corrected For Albumin 9.5 mg/dL (8.4-10.2); Calcium * 8.1 mg/dL (7.9-10.9); Carbon Dioxide 30.5 mmol/L (24-32.6); Potassium 4.6 mmol/L (3.4-4.6); Total Protein 5.8 gm/dL (6.2-8.2)
[2017-09-19] MEDS: SENNOSIDES/DOCUSATE SODIUM 1 TAB TABLET PO SCH (20:14)
[2017-09-20 06:00] LABS: Mean Cell Volume 84.7 fl (78-100); Mean Corpuscular Hemoglobin 27.1 pg (27-31); Mean Platelet Volume 9.4 fl (6.0-9.5); Neutrophil # 4.3 K/mm3 (1.3-6.0); Neutrophil % 63.4 % (42-75.0); Platelet Count 409 K/mm3 (150-450); Red Blood Count 2.95 M/mm3 (4.2-5.4); Red Cell Distribution Width 17.5 % (11.5-14.0); White Blood Count 6.8 K/mm3 (4.0-10.5)
[2017-09-20] MEDS: DABIGATRAN ETEXILATE MESYLATE 150 MG CAPSULE PO SCH (08:10)
[2017-09-20] MEDS: METOPROLOL TARTRATE 25 MG TABLET PO SCH (08:10)
[2017-09-20] MEDS: ACETAMINOPHEN 325 MG TABLET PO SCH ×2 (08:10→12:51)
[2017-09-20] MEDS: CITALOPRAM HYDROBROMIDE 20 MG TABLET PO SCH (08:10)
[2017-09-20] MEDS: FAMOTIDINE 20 MG TABLET PO SCH (08:10)
[2017-09-20] MEDS: buPROPion HCL 150 MG TAB.SR.24H PO SCH (08:11)
[2017-09-20 10:06] VITALS: BP 116/71
--- NOTE | 2017-09-20 12:03 | DS ---
(1) Intertrochanteric fracture of left hip Problem: Acute Qualifiers: Encounter type: subsequent encounter Fracture type: closed Fracture alignment: displaced Fracture healing: with routine healing Qualified Code(s ): S72.142D - Displaced intertrochanteric fracture of left femur, subsequent encounter for closed fracture with routine healing (2) Acute blood loss anemia Problem: Acute (3) Atrial fibrillation Problem: Chronic Qualifiers: Atrial fibrillation type: chronic Qualified Code(s): I48.2 - Chronic atrial fibrillation Description of Stay: Lisa is an 89 yo female who was admitted for Left intertrochanteric femur fracture. Pain was controlled and she was pre-operatively cleared for surgery. She had a low hemoglobin suspected to be from the fracture. She was transfused 2 units of pRBCs and improved from 7 to >9. She underwent surgery on 09/15/17. She had no complications with surgery. She worked with PT and gradually improved. She was discharged to correction for continued therapy. She will follow up with ortho. Procedures Performed: see notes below List Procedures: 09/15/17 - Closed reduction, cephalomedullary fixation left intertrochanteric hip fracture Discharge Disposition: Other HealthCare facility [facility] Disposition: Other health care facility Condition: Fair Discharge Activity: Activity as tolerated, Other - No showers Discharge Diet: General/regular food Discharge Level of Care:: SN[facility] Therapy: Physicial Therapy Referrals: Nnamdi Quintero MD [Staff Physician] - Two Weeks Problem Oriented Discharge Instructions to Patient/Family: Hip Fracture Additional Patient Instructions (free text): Please fax orders, D/C summary and nursing notes to the correction prior to discharge. No showers. F/U with Dr Quintero in 2 weeks. 09/30 at 2:[address] Quintero office. Continue on Pradaxa. Prescriptions (Any new or edited meds): Acetaminophen [Tylenol] 1,000 mg PO Q6H PRN #120 tablet PRN Reason: Mild Pain (Pain Scale 1-3) Morphine Sulfate [Morphine Sulfate Conc. Oral Solution] 10 mg PO Q4H PRN #60 syringe PRN Reason: Severe Pain (Pain Scale 7-10) Sennosides/Docusate Sodium [Senokot-S] 2 tab PO HS #60 tablet Complete Home Medications List: Complete Home Medication List: Acetaminophen [Tylenol] 650 mg PO TID 09/14/17 Citalopram Hydrobromide [Citalopram HBr] 40 mg PO DAILY 09/14/17 Dabigatran Etexilate Mesylate [Pradaxa] 150 mg PO BID 09/14/17 Famotidine 20 mg PO DAILY 09/14/17 Metoprolol Tartrate [Lopressor] 12.5 mg PO BID 09/14/17 buPROPion HCL [Wellbutrin Xl] 150 mg PO DAILY 09/14/17 Acetaminophen [Tylenol] 1,000 mg PO Q6H PRN #120 tablet 09/20/17 Dabigatran Etexilate Mesylate [Pradaxa] 150 mg PO BID capsule 09/20/17 Morphine Sulfate [Morphine Sulfate Conc. Oral Solution] 10 mg PO Q4H PRN #60 syringe 09/20/17 Sennosides/Docusate Sodium [Senokot-S] 2 tab PO HS #60 tablet 09/20/17
== END 2017-09-20 13:30 | disposition short-term general hospital (02) | DRG 481 ==
LOC: ER 19:20 → INTOOBSV 19:51 → MS 19:51 → OBSVTOIN 09-15 08:53
PROVIDERS: ADMIT Nurse Practitioner; ATTEND Family Medicine
PROC: 0QS736Z Reposition Left Upper Femur with Intramedullary Internal Fixation Device, Percutaneous Approach (ICD-10-PCS; principal; 2017-09-15)
DX: S72.142A Displaced intertrochanteric fracture of left femur, initial encounter for closed fracture (principal); D62 Acute posthemorrhagic anemia; W01.0XXA Fall on same level from slipping, tripping and stumbling without subsequent striking against object, initial encounter; Z91.81 History of falling; Y92.129 Unspecified place in nursing home as the place of occurrence of the external cause; I48.2 Chronic atrial fibrillation; I10 Essential (primary) hypertension; K21.9 Gastro-esophageal reflux disease without esophagitis; F32.9 Major depressive disorder, single episode, unspecified; E11.9 Type 2 diabetes mellitus without complications; Z86.711 Personal history of pulmonary embolism; Z87.891 Personal history of nicotine dependence; Z79.01 Long term (current) use of anticoagulants